=== PATIENT | female | born 1960 | race Caucasian/White ===

== ENCOUNTER 2018-06-19 08:41 | Emergency (ER) | payer MEDICAID ==
[~2018-06-19] VITALS: Ht 154.9 cm; Wt 55.1 kg
[2018-06-19 08:44] VITALS: Ht 154.9 cm; Wt 55.1 kg
[2018-06-19] MEDS ORDERED: AZIT250T PO (09:14)
[2018-06-19] MEDS ORDERED: GUAI5SYR2 PO (09:15)
--- NOTE | 2018-06-19 09:17 | ERD ---
ER Documentation Chief Complaint Chief Complaint cough with CWP x 2 weeks HPI 57-year-old [place] speaking female presents the emergency department complaining of a cough for the last 2 weeks. Patient states that she began having upper respiratory infection symptoms proximal me 2 weeks ago. After initial improvement, she started to get worse with an increasing cough. She reports no sputum production. She has occasional posttussive emesis. She reports a low-grade fever. She reports no hemoptysis. She reports no significant chest pain. ROS All systems reviewed and are negative except as per history of present illness. Medications Home Meds Active Scripts Guaifenesin-Dextromethorphan* (Robitussin* DM) 100MG/10MG/5ML Syrup, 10 ML PO Q6H PRN for COUGH, #120 ML Prov:MAMI JOHNSONSON 06/19/18 Azithromycin* (Zithromax*) 250 Mg Tablet, 250 MG PO .ZPACK DIRECTED, #6 TAB TAKE 500 MG (2 TABS) THE FIRST DAY THEN 250 MG (1 TAB) DAYS 2-5 Prov:IAN JOHNSON 06/19/18 FmHx Noncontributory for chief complaint Physical Exam Vitals Vital Signs Date Temp Pulse Resp B/P (MAP) Pulse Ox O2 O2 Flow FiO2 Time Delivery Rate 06/19/18 97.4 77 18 174/79 99 08:44 (110) Physical Exam GENERAL: The patient is well developed and appropriate for usual state of health in no apparent distress HEENT: Pupils equal, round, and reactive to light. EOMI. There is no scleral icterus. NECK: C-spine is soft and supple, there is no meningismus. There is no cervical lymphadenopathy. LUNGS: Clear to auscultation bilaterally. There are no rales, wheezes or rhonchi. HEART: Regular rate and rhythm, no murmurs, clicks, rubs or gallops. Procedures/MDM Patient was taken to a room, seen and examined Medical decision making:-year-old female presents with a bronchitis type picture. At this time patient has had symptoms for over 2 weeks and seems to be worsening despite initial improvement. This is concerning for an acute bacteria l bronchitis. Patient has no evidence of hypoxemia or respiratory distress. I will be starting her on antibiotics which otherwise appears to be appropriate for outpatient care Departure Diagnosis: Primary Impression: Cough Additional Impression: Bronchitis Condition: Stable Patient Instructions: Bronchitis, Antiobiotic Treatment (Adult) Additional Instructions: Please follow-up with your doctor as necessary. IAN JOHNSON Jun 19, 2018 09:17
[2018-06-19 10:08] VITALS: BP 125/73; PULSE 68; RESP 16
== END 2018-06-19 10:10 | disposition home or self-care (01) ==
LOC: FTE 08:41
DX: J40 Bronchitis, not specified as acute or chronic (principal)
CPT/HCPCS: 99283